=== PATIENT | male | born 1950 | race Caucasian/White ===

== ENCOUNTER 2023-02-25 07:00 | Outpatient (CLI) | payer MEDICARE ==
--- NOTE | 2023-02-25 16:38 | XRAY Report ---
PROCEDURE: Knee 3 View LT INDICATIONS: SPRAIN OF LEFT KNEE TECHNIQUE: 3 views of the knee(s) were acquired. COMPARISON: None. FINDINGS: Bones: No fractures or dislocations. No suspicious bony lesions. Well-aligned arthroplasty withou t hardware complication. Soft tissues: Trace knee joint effusion. No suspicious soft tissue calcifications or masses. IMPRESSION: Well-aligned arthroplasty without hardware complication. Trace knee joint effusion. Reviewed by: James Reed on 02/25/2023 4:37 PM PST Approved by: James Reed on 02/25/2023 4:37 PM PST Station ID: [id number]
== END 2023-02-25 23:59 | disposition home or self-care (01) ==
LOC: DI.S 07:00
PROVIDERS: ATTEND Emergency Medicine
DX: S83.92XA Sprain of unspecified site of left knee, initial encounter (principal); Z96.652 Presence of left artificial knee joint; M25.462 Effusion, left knee